=== PATIENT | female | born 1965 | race Caucasian/White ===

== ENCOUNTER 2017-07-09 19:14 | Emergency (ER) | payer BC, OTHER ==
[~2017-07-09] VITALS: Ht 157.5 cm; Wt 74.4 kg
[~2017-07-09 19:14] MED LIST: ASPIR-TRIN325 M1 PO; Cipro PO; ERYTHROMYCIN E400 M1 PO; Levothroid,Synthroid PO; Macrodantin PO; PRAVASTATIN SOD40 MG PO; PROTONIX40 MG PO; Protonix PO; SYNTHROID75 MCG PO; Vicodin,Norco 5/325 PO
[2017-07-09 19:40] LABS: BASOPHIL (%) 0.8 % (0-1); EOSINOPHIL (%) 3.3 % (0-5); EOSINOPHIL COUNT 0.2 K/uL (0-0.3); HEMATOCRIT 38.7 % (36.0-46.0); HEMOGLOBIN 13.2 G/DL (11.9-15.5); IMMATURE GRANULOCYTE (%) 0.2 % (0.0-0.7); LYMPHOCYTE (%) 36.1 % (15-42); LYMPHOCYTE COUNT 1.9 K/uL (1.0-2.8); MCH 30.8 PG (29.0-34.0); MCHC 34.1 G/DL (30.0-36.0); MCV 90.4 FL (83-99); MONOCYTE (%) 8.6 % (3-12); MONOCYTE COUNT 0.5 K/uL (0-0.8); NEUTROPHIL COUNT 2.7 K/uL (1.8-6.4); PLATELET COUNT 350 K/uL (156-360); RBC DIS.WIDTH-CV 12.3 % (11.8-14.6); RBC DIS.WIDTH-SD 40.2 % (39-53); RED BLOOD COUNT 4.28 M/uL (3.80-5.20); WHITE BLOOD COUNT 5.2 K/uL (4.1-10.2)
[2017-07-09 19:49] LABS: ALBUMIN 4.7 g/dL (3.2-4.8); CHLORIDE 107 mEq/L (99-109); POTASSIUM 4.3 mEq/L (3.7-5.4); SODIUM 141 mEq/L (136-147)
[2017-07-09 19:51] LABS: GLUCOSE 93 mg/dL (70-99); TOTAL PROTEIN 7.9 g/dL (6.4-8.3)
[2017-07-09 19:53] LABS: TOTAL BILIRUBIN 0.5 mg/dL (0.0-1.0)
[2017-07-09 19:54] LABS: ALKALINE PHOSPHATASE 70 IU/L (3-129)
[2017-07-09 19:55] LABS: CREATININE 0.8 mg/dL (0.6-1.3); GFR ESTIMATE (CALCULATED) > 59 mL/min/
[2017-07-09 19:56] LABS: AST (GOT) 28 IU/L (2-34); UREA NITROGEN (BUN) 10 mg/dL (9-23)
[2017-07-09 19:58] LABS: ALT (GPT) 20 IU/L (3-49)
[2017-07-09] MEDS ORDERED: SYNTHROID50 MCG PO (22:06)
[2017-07-09] MEDS ORDERED: PROZAC40 MG PO (22:07)
[2017-07-09] MEDS ORDERED: ANTIVERT25 MG PO (23:31)
[2017-07-10 00:30] VITALS: BP 115/70
== END 2017-07-10 00:40 | disposition home or self-care (01) ==
LOC: EME 19:14
DX: H81.10 Benign paroxysmal vertigo, unspecified ear (principal); K21.9 Gastro-esophageal reflux disease without esophagitis; E78.5 Hyperlipidemia, unspecified; E06.3 Autoimmune thyroiditis; Z91.81 History of falling; Z91.040 Latex allergy status
CPT/HCPCS: 70450; 80053; 85025; 99281; 99285